=== PATIENT | female | born 1990 | race Caucasian/White ===

== ENCOUNTER 2019-01-04 23:46 | Emergency (ER) | payer MEDICAID ==
--- NOTE | 2019-01-05 02:11 | ER Document Report ---
ED Medical Screen (RME) - General Chief Complaint: Medical Complaint Stated Complaint: POSSIBLE MEDICATION REACTION Time Seen by Provider: 01/05/19 02:08 Primary Care Provider: LITTLE WATTERS MD [Primary Care Provider] - Follow up as needed Mode of Arrival: Ambulatory Information source: Patient Notes: 28-year-old female presented to ED for possible reaction to Plaquenil. She states she took the Plaquenil about 3 PM. She states she started feeling "funny, weird, burning feeling to the skin". She states about 5:00 he started getting dizzy and feeling like her heart was racing and she had a rash but it was not itchy it is felt/. She states this went away back after 10 minutes. She states she then went out to dinner about 930. She states she felt chest discomfort and throat tightness and flushed feeling again. She states that it went away again after about 10 minutes. She states this feeling has been coming and going multiple times. She states earlier today she did try some charcoal for gas but had no relief with that. Patient is alert oriented respirations regular and unlabored speaking in full sentences. Patient states she is positive for lupus. I have greeted and performed a rapid initial assessment of this patient. A comprehensive ED assessment and evaluation of the patient, analysis of test results and completion of medical decision making process will be conducted by an additional ED providers. Dictation of this chart was performed using voice recognition software; therefore, there may be some unintended grammatical errors. TRAVEL OUTSIDE OF THE [place] IN LAST 30 DAYS: No - Related Data Allergies/Adverse Reactions: methylprednisolone Allergy (Verified 01/04/19 23:51) prednisone Allergy (Verified 01/04/19 23:51) Past Medical History - Immunizations Hx Diphtheria, Pertussis, Tetanus Vaccination: Yes Doctor's Discharge - Discharge Referrals: LITTLE WATTERS MD [Primary Care Provider] - Follow up as needed
[2019-01-05 03:51] LABS: APPEARANCE,URINE CLEAR; BILIRUBIN,URINE NEGATIVE (NEGATIVE); COLOR,URINE YELLOW; GLUCOSE, URINE NEGATIVE (NEGATIVE); KETONES,URINE 20 mg/dL (NEGATIVE); LEUKOCYTE ESTERASE,URINE NEGATIVE (NEGATIVE); NITRITE,URINE NEGATIVE (NEGATIVE); PROTEIN,URINE NEGATIVE (NEGATIVE); URINE SPECIFIC GRAVITY 1.013; UROBILINOGEN,URINE NEGATIVE mg/dL (<2.0)
[2019-01-05 03:53] LABS: ABSOLUTE LYMPHOCYTES (AUTO) 1.7 10^3/uL (0.5-4.7); ABSOLUTE MONOCYTES (AUTO) 0.4 10^3/uL (0.1-1.4); ABSOLUTE NEUT (AUTO) 5.2 10^3/uL (1.7-8.2); BASOPHILS % (AUTO) 0.6 % (0-2); EOSINOPHILS % (AUTO) 0.3 % (0-6); HEMATOCRIT 39.9 % (36.0-47.0); HEMOGLOBIN 14.3 g/dL (12.0-15.5); LYMPHOCYTES % (AUTO) 22.8 % (13-45); MEAN CORPUSCULAR HEMOGLOBIN 31.6 pg (27.0-33.4); MEAN CORPUSCULAR HGB CONC 35.9 g/dL (32.0-36.0); MEAN CORPUSCULAR VOLUME 88 fl (80-97); MONOCYTES % (AUTO) 5.7 % (3-13); PLATELET COUNT 245 10^3/uL (150-450); RED BLOOD COUNT 4.53 10^6/uL (3.72-5.28); RED CELL DISTRIBUTION WIDTH 12.9 % (11.5-14.0); SEGMENTED NEUTROPHILS % (AUTO) 70.6 % (42-78); TOTAL CELLS COUNTED % (AUTO) 100 %; WHITE BLOOD COUNT 7.4 10^3/uL (4.0-10.5)
[2019-01-05 04:10] LABS: ALANINE AMINOTRANSFERASE 18 U/L (9-52); ALBUMIN 4.7 g/dL (3.5-5.0); ALKALINE PHOSPHATASE 46 U/L (38-126); ANION GAP 11 (5-19); ASPARTATE AMINO TRANSFERASE 19 U/L (14-36); BILIRUBIN,DIRECT 0.1 mg/dL (0.0-0.4); BILIRUBIN,TOTAL 0.4 mg/dL (0.2-1.3); BLOOD UREA NITROGEN 12 mg/dL (7-20); CARBON DIOXIDE 26 mmol/L (22-30); CHLORIDE 104 mmol/L (98-107); GLUCOSE 116 mg/dL (75-110); POTASSIUM 4.1 mmol/L (3.6-5.0); SODIUM 141.4 mmol/L (137-145); TOTAL PROTEIN 7.5 g/dL (6.3-8.2)
[2019-01-05] MEDS ORDERED: LORAZEPAM 0.5 MG TABLET PO ONE (04:58)
--- NOTE | 2019-01-05 05:01 | ER Document Report ---
ED General - General Chief Complaint: Medical Complaint Stated Complaint: POSSIBLE MEDICATION REACTION Time Seen by Provider: 01/05/19 02:08 Primary Care Provider: LITTLE WATTERS MD [ACTIVE STAFF] - Follow up as needed Mode of Arrival: Ambulatory Notes: Patient is a 28-year-old female that comes to the emergency department for chief complaint of possible allergic reaction to Plaquenil. She states she has been prescribed this for a while, she states she had a bad reaction to prednisone in the past, she states she finally decided to take one earlier today. She states that her that she felt like she was lightheaded, she states that she had flushing on her skin on her neck and arms that would show up and then resolved shortly after this, she states that she got a strange feeling over her skin that almost felt like burning in spots. She denies itching, she denies rash that stayed. She states that later she felt lightheaded again, felt like her heart was beating with palpitations, and felt flushed. She states that after this she came to the emergency department. She denies chest pain, shortness of breath, passing out, difficulty swallowing. She denies any current complaints other than feeling slightly shaky, she states she feels much better. 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 TRAVEL OUTSIDE OF THE [place] IN LAST 30 DAYS: No - Related Data Allergies/Adverse Reactions: methylprednisolone Allergy (Verified 01/04/19 23:51) prednisone Allergy (Verified 01/04/19 23:51) Past Medical History - General Information source: Patient - Social History Smoking Status: Never Smoker Drug Abuse: None Lives with: Family Family History: Reviewed & Not Pertinent Patient has suicidal ideation: No Patient has homicidal ideation: No Renal/ Medical History: Denies: Hx Peritoneal Dialysis Musculoskeletal Medical History: Reports Hx Systemic Lupus Erythematosus - Undifferentiated connective tissue disorder, possibly lupus Psychiatric Medical History: Reports: Hx Anxiety - Immunizations Hx Diphtheria, Pertussis, Tetanus Vaccination: Yes Review of Systems - Review of Systems Constitutional: See HPI EENT: No symptoms reported Cardiovascular: See HPI Respiratory: No symptoms reported Gastrointestinal: No symptoms reported Genitourinary: No symptoms reported Female Genitourinary: No symptoms reported Musculoskeletal: No symptoms reported Skin: See HPI Hematologic/Lymphatic: No symptoms reported Neurological/Psychological: No symptoms reported Physical Exam - Vital signs Vitals: Temp Pulse Resp BP Pulse Ox 98.6 F 98 16 132/73 H 100 01/04/19 23:53 01/04/19 23:53 01/04/19 23:53 01/04/19 23:53 01/04/19 23:53 - Notes Notes: GENERAL: Patient is shaking in her hands slightly, she is alert, interacts well, otherwise well-appearing. HEAD: Normocephalic, atraumatic. EYES: Pupils equal, round, and reactive to light. Extraocular movements intact. ENT: Oral mucosa moist, tongue midline. Oropharynx unremarkable. Airway patent. Nares patent, no nasal septal hematoma, TM's intact. NECK: Full range of motion. Supple. Trachea midline. LUNGS: Clear to auscultation bilaterally, no wheezes, rales, or rhonchi. No respiratory distress. HEART: Regular rate and rhythm. No murmur ABDOMEN: Soft, non-tender. Non-distended. Bowel sounds present in all 4 quadrants. GENITOURINARY: Deferred EXTREMITIES: Moves all 4 extremities spontaneously. No edema, normal radial and dorsalis pedis pulses bilaterally. No cyanosis. BACK: no cervical, thoracic, lumbar midline tenderness. No saddle anesthesia, normal distal neurovascular exam. Moves all extremities in full range of motion. NEUROLOGICAL: Alert and oriented x3. Normal speech. Cranial nerves II through XII grossly intact. PSYCH: Speaks persistently and slightly rapidly. SKIN: Warm, dry, normal turgor. No rashes or lesions noted. Course - Re-evaluation Re-evalutation: EKG unremarkable. Sinus rhythm, no T wave inversions or ST segment changes in consecutive leads, normal axis, normal KS interval. Patient currently asy mptomatic. CBC, chemistry unremarkable. Urinalysis unremarkable. test is negative. Patient has no signs of anaphylaxis on her exam. She does not specifically report hives, soft tissue swelling, airway compromise, difficulty breathing. She does report flushing and symptoms suggestive of hypoglycemia although this is not definite. She also reports "bad anxiety" and appears to have had a panic attack. She was provided with a dose of Ativan because she is still slightly shaky on my evaluation. I discussed with patient, decision was made to place her on cetirizine although I do feel that she did not have an allergic reaction, possibly simply medication side effects. Patient states that she will discuss Plaquenil with her provider before she takes it again. Discussed return precautions in detail. Patient states satisfaction agreement with plan. - Vital Signs Vital signs: Temp Pulse Resp BP Pulse Ox 98.4 F 97 19 113/57 L 100 01/05/19 05:22 01/05/19 05:22 01/05/19 05:22 01/05/19 05:22 01/05/19 05:22 - Laboratory Result Diagrams: 01/05/19 03:35 01/05/19 03:35 Laboratory results interpreted by me: 01/05/19 01/05/19 00:03 03:35 Glucose 116 H Urine Ketones 20 H Discharge - Discharge Clinical Impression: Flushing, Lightheadedness, Rash Condition: Stable Disposition: HOME, SELF-CARE Additional Instructions: Your symptoms are suggestive of hypoglycemia and also flushing, this could be side effects/intolerance to the medication that you tried earlier today. I do not see evidence of an allergic reaction on your evaluation at this time. 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 Return for any concerning symptoms including difficulty swallowing or breathing, swelling of the face, passing out, or any other concerning or worsening symptoms. Prescriptions: Cetirizine HCl [Allergy Relief] 10 mg PO DAILY #30 capsule Forms: Return to Work, Treatment of Relative/Child Referrals: LITTLE WATTERS MD [ACTIVE STAFF] - Follow up as needed
[2019-01-05 05:24] VITALS: BP 113/57
== END 2019-01-05 05:25 | disposition home or self-care (01) ==
LOC: ER 23:46
DX: R42 Dizziness and giddiness (principal); R23.2 Flushing; R21 Rash and other nonspecific skin eruption
CPT/HCPCS: 36415; 80053; 81001; 82553; 84703; 85025; 99283

== ENCOUNTER 2019-01-07 19:34 | Emergency (ER) | payer MEDICAID ==
[2019-01-07 23:47] LABS: APPEARANCE,URINE SLIGHTLY-CLOUDY; BILIRUBIN,URINE NEGATIVE (NEGATIVE); COLOR,URINE YELLOW; GLUCOSE, URINE NEGATIVE (NEGATIVE); KETONES,URINE 20 mg/dL (NEGATIVE); LEUKOCYTE ESTERASE,URINE NEGATIVE (NEGATIVE); NITRITE,URINE NEGATIVE (NEGATIVE); PROTEIN,URINE NEGATIVE (NEGATIVE); URINE SPECIFIC GRAVITY 1.019; UROBILINOGEN,URINE NEGATIVE mg/dL (<2.0)
[2019-01-07 23:57] LABS: ABSOLUTE LYMPHOCYTES (AUTO) 2.1 10^3/uL (0.5-4.7); ABSOLUTE MONOCYTES (AUTO) 0.6 10^3/uL (0.1-1.4); ABSOLUTE NEUT (AUTO) 5.4 10^3/uL (1.7-8.2); BASOPHILS % (AUTO) 0.6 % (0-2); EOSINOPHILS % (AUTO) 0.5 % (0-6); HEMOGLOBIN 14.3 g/dL (12.0-15.5); LYMPHOCYTES % (AUTO) 25.3 % (13-45); MEAN CORPUSCULAR HEMOGLOBIN 31.6 pg (27.0-33.4); MEAN CORPUSCULAR HGB CONC 35.6 g/dL (32.0-36.0); MEAN CORPUSCULAR VOLUME 89 fl (80-97); MONOCYTES % (AUTO) 6.9 % (3-13); PLATELET COUNT 239 10^3/uL (150-450); RED BLOOD COUNT 4.52 10^6/uL (3.72-5.28); RED CELL DISTRIBUTION WIDTH 12.8 % (11.5-14.0); SEGMENTED NEUTROPHILS % (AUTO) 66.7 % (42-78); TOTAL CELLS COUNTED % (AUTO) 100 %; WHITE BLOOD COUNT 8.1 10^3/uL (4.0-10.5)
[2019-01-08 00:09] LABS: URINE AMPHETAMINES SCREEN NEGATIVE; URINE BARBITURATES SCREEN NEGATIVE; URINE BENZODIAZEPINES SCREEN NEGATIVE; URINE COCAINE SCREEN NEGATIVE; URINE MARIJUANA (THC) SCREEN NEGATIVE; URINE METHADONE SCREEN NEGATIVE; URINE PHENCYCLIDINE SCREEN NEGATIVE
[2019-01-08 00:24] LABS: ALANINE AMINOTRANSFERASE 18 U/L (9-52); ALBUMIN 4.8 g/dL (3.5-5.0); ALKALINE PHOSPHATASE 49 U/L (38-126); ANION GAP 13 (5-19); ASPARTATE AMINO TRANSFERASE 19 U/L (14-36); BILIRUBIN,DIRECT 0.1 mg/dL (0.0-0.4); BILIRUBIN,TOTAL 0.6 mg/dL (0.2-1.3); BLOOD UREA NITROGEN 10 mg/dL (7-20); CALCIUM 9.9 mg/dL (8.4-10.2); CARBON DIOXIDE 23 mmol/L (22-30); CHLORIDE 105 mmol/L (98-107); GLUCOSE 93 mg/dL (75-110); POTASSIUM 3.7 mmol/L (3.6-5.0); SODIUM 141.1 mmol/L (137-145); TOTAL PROTEIN 7.8 g/dL (6.3-8.2)
[2019-01-08 00:33] LABS: ERYTHROCYTE SEDIMENTATION RATE 6 mm/hr (0-20)
--- NOTE | 2019-01-08 00:36 | ER Document Report ---
Entered by MARBELLA ORTIZ SCRIBE 01/07/19 [id number] Acting as scribe for:YIN HARRIS MD ED General - General Chief Complaint: Palpitations Stated Complaint: POSSIBLE ALLERGIC REACTION Time Seen by Provider: 01/07/19 23:04 Primary Care Provider: JOON BANKS FNP-C [Primary Care Provider] - Follow up as needed Mode of Arrival: Ambulatory Information source: Patient Notes: Patient is a 28 year old female with anxiety presents to the emergency department complaining of multiple symptoms including heart palpitations, nausea and redness of the skin onset 4 days ago. Patient states she would have intermittent episodes of heart palpitations accompanied by elevated blood pressure, a "warm flushing sensation across her entire body" followed by nausea and feelings of panic further stating "I feel like i am going to ". She states the symptoms were onset after taking half a tablet of 200mg Plaquenil. Patient states these symptoms are onset randomly when sitting or going into the standing position. She states the highest her heart rate has been since the onset of her symptoms were 124 bpm and the highest blood pressure has been 134/70. Patient states she has had elevated MOHAMUD and she is currently seeing a provider concerning this. She states her PCP has not checked her thyroid function so she did an at home T3 and T4 test which proved to be normal. Patient was prescribed the Plaquenil on October 24, but she reports not taking the medication until recently due to living in a moldy house further stating she waited until she moved to take the medication. TRAVEL OUTSIDE OF THE [place] 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 Lives with: Spouse/Significant other Family History: Reviewed & Not Pertinent Patient has suicidal ideation: No Patient has homicidal ideation: No Musculoskeletal Medical History: Reports Hx Systemic Lupus Erythematosus - Undifferentiated connective tissue disorder, possibly lupus Psychiatric Medical History: Reports: Hx Anxiety Past Surgical History: Reports: Hx Oral Surgery - wisdom teeth - Immunizations Hx Diphtheria, Pertussis, Tetanus Vaccination: Yes Review of Systems - Review of Systems Constitutional: See HPI EENT: No symptoms reported Cardiovascular: See HPI, Palpitations Respiratory: No symptoms reported Gastrointestinal: See HPI, Nausea Genitourinary: No symptoms reported Female Genitourinary: No symptoms reported Musculoskeletal: No symptoms reported Skin: See HPI, Change in color Hematologic/Lymphatic: No symptoms reported Neurological/Psychological: No symptoms reported -: Yes All other systems reviewed and negative Physical Exam - Vital signs Vitals: Temp Pulse Resp BP Pulse Ox 99.0 F 90 16 117/74 100 01/07/19 19:47 01/07/19 19:47 01/07/19 19:47 01/07/19 19:47 01/07/19 19:47 - Notes Notes: GENERAL: Alert, interacts well. No acute distress. HEAD: Normocephalic, atraumatic. EYES: Pupils equal, round, and reactive to light. Extraocular movements intact. ENT: Oral mucosa moist, tongue midline. NECK: Full range of motion. Supple. Trachea midline. LUNGS: Clear to auscultation bilaterally, no wheezes, rales, or rhonchi. No respiratory distress. HEART: Regular rate and rhythm. No murmurs, gallops, or rubs. ABDOMEN: Soft, non-tender. Non-distended. Bowel sounds present in all 4 chandler drants. No guarding, rigidity, or rebound. EXTREMITIES: Moves all 4 extremities spontaneously. No edema, radial and dorsalis pedis pulses 2/4 bilaterally. No cyanosis. NEUROLOGICAL: Alert and oriented x3. Normal speech. PSYCH: Normal affect, normal mood. SKIN: Warm, dry, normal turgor. No rashes or lesions noted. Course - Re-evaluation Re-evalutation: 01/08/19 00:51 The patient's ESR is only 6 mm/hr. This does not suggest that she has an active case of lupus or other autoimmune disorder. - Vital Signs Vital signs: Temp Pulse Resp BP Pulse Ox 99.0 F 90 16 117/74 100 01/07/19 19:47 01/07/19 19:47 01/07/19 19:47 01/07/19 19:47 01/07/19 19:47 - Laboratory Result Diagrams: 01/07/19 23:47 01/07/19 23:47 Laboratory results interpreted by me: 01/07/19 23:32 Urine Ketones 20 H Urine Ascorbic Acid 20 H Discharge - Discharge Clinical Impression: Anxiety about health, Panic attacks, Palpitations Condition: Stable Disposition: HOME, SELF-CARE Additional Instructions: Panic Attack The cause of panic attacks is unknown. Symptoms can include chest pain, shortness of breath, palpitations, sweats, and a sense of smothering or impending doom. In time, the panic attacks can lead to generalized anxiety and phobias. Because the symptoms can mimic heart attack, pulmonary embolism, and other serious diseases, the physician has evaluated you for these conditions. There is no evidence of a serious problem. An acute panic attack usually goes away by itself without treatment. A severe attack can be treated with medicine to calm you. Long-term, antidepressant medicines may help prevent attacks. Counselling can also be very beneficial in dealing with panic attacks. Panic attacks are less likely if you are getting regular exercise, proper diet, and plenty of sleep. It's normal for panic attacks to cause many frightening symptoms. However, you should call or return if your symptoms change significantly or if you are worsening. Your lab work was unremarkable tonight. The TSH will be run sometime tomorrow. Your erythrocyte sedimentation rate(ESR) was quite low at only 6 mm/hr, it is usually quite elevated when you are having a flareup of an autoimmune disorder such as lupus, rheumatoid arthritis, or thyroiditis. Try taking Benadryl to help with anxiety and panic attacks, this may also help you sleep. Follow-up with your primary care provider on Thursday to discuss these anxiety attacks. RETURN TO THE EMERGENCY ROOM IF ANY NEW OR WORSENING SYMPTOMS. Referrals: JOON BANKS, BRETC [Primary Care Provider] - 01/10/19 Scribe Attestation: 01/07/19 23:33 I personally performed the services described in the documentation, reviewed and edited the documentation which was dictated to the scribe in my presence, and it accurately records my words and actions. I personally performed the services described in the documentation, reviewed and edited the documentation which was dictated to the scribe in my presence, and it accurately records my words and actions.
[2019-01-08 01:18] VITALS: BP 120/70
--- NOTE | 2019-01-08 11:57 | EKG REPORT ---
SEVERITY:- BORDERLINE ECG - SINUS RHYTHM NONSPECIFIC ST-T CHANGES : Confirmed by: Seymour Machado MD 08-Jan-2019 11:56:53
== END 2019-01-08 01:27 | disposition home or self-care (01) ==
LOC: ER 19:34
DX: F41.9 Anxiety disorder, unspecified (principal); F41.0 Panic disorder [episodic paroxysmal anxiety]; R00.2 Palpitations; R11.0 Nausea; L53.9 Erythematous condition, unspecified; Z88.8 Allergy status to other drugs, medicaments and biological substances
CPT/HCPCS: 36415; 80053; 80307; 81001; 82962; 84443; 85025; 85652; 93005; 93010; 99285

== ENCOUNTER → 2019-05-23 | Outpatient (CLI) | payer MEDICAID | LOC: OD 15:49 | PROVIDERS: ATTEND Nurse Practitioner Family | DX: F41.9 Anxiety disorder, unspecified (principal); R56.9 Unspecified convulsions | CPT/HCPCS: 36415; 82306; 82607 ==

== ENCOUNTER 2020-03-09 05:48 | Emergency (ER) | payer MEDICAID ==
[2020-03-09 07:04] LABS: APPEARANCE,URINE CLEAR; BILIRUBIN,URINE NEGATIVE (NEGATIVE); COLOR,URINE STRAW; GLUCOSE, URINE NEGATIVE (NEGATIVE); KETONES,URINE NEGATIVE (NEGATIVE); LEUKOCYTE ESTERASE,URINE NEGATIVE (NEGATIVE); NITRITE,URINE NEGATIVE (NEGATIVE); PROTEIN,URINE NEGATIVE (NEGATIVE); URINE SPECIFIC GRAVITY 1.009; UROBILINOGEN,URINE NEGATIVE mg/dL (<2.0)
[2020-03-09 07:05] LABS: ABSOLUTE EOSINOPHILS # (AUTO) 0.1 10^3/uL (0.0-0.6); ABSOLUTE LYMPHOCYTES (AUTO) 2.1 10^3/uL (0.5-4.7); ABSOLUTE MONOCYTES (AUTO) 0.5 10^3/uL (0.1-1.4); ABSOLUTE NEUT (AUTO) 3.6 10^3/uL (1.7-8.2); BASOPHILS % (AUTO) 0.6 % (0-2); EOSINOPHILS % (AUTO) 1.6 % (0-6); HEMATOCRIT 38.7 % (36.0-47.0); HEMOGLOBIN 13.8 g/dL (12.0-15.5); LYMPHOCYTES % (AUTO) 32.2 % (13-45); MEAN CORPUSCULAR HEMOGLOBIN 31.8 pg (27.0-33.4); MEAN CORPUSCULAR HGB CONC 35.8 g/dL (32.0-36.0); MEAN CORPUSCULAR VOLUME 89 fl (80-97); MONOCYTES % (AUTO) 8.5 % (3-13); PLATELET COUNT 224 10^3/uL (150-450); RED BLOOD COUNT 4.35 10^6/uL (3.72-5.28); RED CELL DISTRIBUTION WIDTH 12.3 % (11.5-14.0); SEGMENTED NEUTROPHILS % (AUTO) 57.1 % (42-78); TOTAL CELLS COUNTED % (AUTO) 100 %; WHITE BLOOD COUNT 6.4 10^3/uL (4.0-10.5)
[2020-03-09 07:17] LABS: URINE AMPHETAMINES SCREEN NEGATIVE; URINE BARBITURATES SCREEN NEGATIVE; URINE BENZODIAZEPINES SCREEN NEGATIVE; URINE COCAINE SCREEN NEGATIVE; URINE MARIJUANA (THC) SCREEN NEGATIVE; URINE METHADONE SCREEN NEGATIVE; URINE PHENCYCLIDINE SCREEN NEGATIVE
[2020-03-09 07:26] LABS: ALBUMIN 4.4 g/dL (3.5-5.0); ALKALINE PHOSPHATASE 70 U/L (38-126); ANION GAP 6 (5-19); ASPARTATE AMINO TRANSFERASE 21 U/L (14-36); BILIRUBIN,TOTAL 0.2 mg/dL (0.2-1.3); BLOOD UREA NITROGEN 17 mg/dL (7-20); CALCIUM 9.4 mg/dL (8.4-10.2); CARBON DIOXIDE 28 mmol/L (22-30); CHLORIDE 105 mmol/L (98-107); GLUCOSE 127 mg/dL (75-110); POTASSIUM 3.7 mmol/L (3.6-5.0); TOTAL PROTEIN 7.4 g/dL (6.3-8.2)
[2020-03-09 07:30] LABS: ALCOHOL < 10 mg/dL (NONE DETECTED)
--- NOTE | 2020-03-09 07:46 | ER Document Report ---
ED General - General Chief Complaint: Probable Seizure Stated Complaint: POSSIBLE SEIZURE Time Seen by Provider: 03/09/20 06:47 Primary Care Provider: RAIN LEWIS NP-C [NO LOCAL MD] - Follow up as needed TRAVEL OUTSIDE OF THE [place] IN LAST 30 DAYS: No - HPI Notes: Chief complaint: Possible seizure History of present illness: 29-year-old female presents for evaluation of possible seizure. Patient has a relatively complex history although she is currently on no medication. Patient began having what sounds like panic attacks about 2 years ago. She subsequently had some episodes of what she describes as "convulsive shaking" with these occasionally. She was ultimately seen by a local neurologist and had extensive studies including a brain MRI, standard EEG and sleep deprived EEG all of which were reported as normal. Neurologist advised her that she was probably having pseudoseizures and these were felt to likely be related to panic attacks. Patient was referred for cognitive therapy and never really followed through with this process because she lost her health insurance. She was also subsequently seen by a local inspector subassemblies, Dr. Singletary, who found evidence of autonomic instability with a positive tilt table test. He suggested that the patient regularly takes salt tablets. She did this for a while and did very well but recently has been somewhat noncompliant with this therapy. She is also subsequently been seen by a trim carpenter in [facility] and was told that she had "some features of possible early lupus" although she did not meet full diagnostic criteria. She was briefly treated with Plaquenil but this was discontinued because of adverse side effects. Patient says that overnight she felt anxious and had 1 of her episodes of "convulsive shaking". There was no loss of consciousness. She says she could not speak for about 15 minutes and this is been characteristic of the other episodes that she has had. She has a home blood pressure monitor and says that her blood pressure at that time was 80/40. She was brought to the hospital by her significant other and says she feels slightly tremulous now but is otherwise well. She denies any headache or focal deficit. She denies any fever, chills or vomiting. Patient denies use of tobacco or alcohol. States that she smoked marijuana in the past but none recently. No major surgery. No current medications. Multiple drug allergies including Plaquenil, methylprednisolone and prednisone. 8 para 2 AB 6. Last menses 2 weeks ago described as normal. - Related Data Allergies/Adverse Reactions: hydroxychloroquine [From Plaquenil] Allergy (Verified 03/09/20 06:26) methylprednisolone Allergy (Verified 01/04/19 23:51) prednisone Allergy (Verified 01/04/19 23:51) Home Medications: salt tab, ibuprofen prn, cbd oil, folate 2xweek, vitamin d q week,. 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 Denies: Hx Seizures Endocrine Medical History: Denies: Hx Diabetes Mellitus Type 1, Hx Diabetes Mellitus Type 2 Renal/ Medical History: Denies: Hx Peritoneal Dialysis Musculoskeletal Medical History: Reports Hx Systemic Lupus Erythematosus - Undifferentiated connective tissue disorder, possibly lupus Psychiatric Medical History: Reports: Hx Anxiety, Other - Panic attacks Past Surgical History: Reports: Hx Oral Surgery - wisdom teeth - Immunizations Hx Diphtheria, Pertussis, Tetanus Vaccination: Yes Review of Systems - Review of Systems Notes: Constitutional: Negative for fever. HENT: Negative for sore throat. Eyes: Negative for visual changes. Cardiovascular: Negative for chest pain. Respiratory: Negative for shortness of breath. Gastrointestinal: Negative for abdominal pain, vomiting or diarrhea. Genitourinary: Negative for dysuria. Musculoskeletal: Negative for back pain. Skin: Negative for rash. Neurological: As per HPI. 10 point ROS negative except as marked above and in HPI. Physical Exam - Vital signs Vitals: Temp Pulse Resp BP Pulse Ox 99.3 F 125 H 16 120/76 99 03/09/20 05:53 03/09/20 05:53 03/09/20 05:53 03/09/20 05:53 03/09/20 05:53 Interpretation: Tachycardic - Notes Notes: GENERAL: Slender female approximately stated age appearing mildly anxious but otherwise in no acute distress. SKIN: Good turgor no rashes. HEAD: Normocephalic atraumatic. EYES: PERRLA. EOMI. Conjunctivae and sclerae clear. EARS: CANALS AND TMS CLEAR. NOSE: CLEAR. MOUTH: Moist mucosa. Good dentition. No stridor or edema. No drooling. NECK: Supple. No masses or thyromegaly. No adenopathy. Carotids 2+ without bruits. No JVD. BACK: Symmetrical without tenderness. CHEST: Respirations unlabored. Breath sounds clear and symmetrical. HEART: Tachycardic regular rhythm. No murmur gallop or rub. ABDOMEN: Soft nontender without masses, organomegaly or rebound. Bowel sounds normally active. No bruits. GENITALIA: Deferred. EXTREMITIES: No edema. No calf tenderness. Cap refill less than 1.5 seconds. Dorsalis pedis and posterior tibial pulses 3+ and symmetrical. NEUROLOGICAL: Mild generalized tremor. GCS 15. Alert and oriented x3. Normal gait. Fluent speech. Cranial nerves II through XII intact. Sensorimotor and cerebellar normal. Normal tone. PSYCHIATRIC: Mildly anxious affect. Course - Vital Signs Vital signs: Temp Pulse Resp BP Pulse Ox 99.3 F 106 H 15 117/84 98 03/09/20 05:53 03/09/20 10:31 03/09/20 11:01 03/09/20 11:00 03/09/20 11:01 - Laboratory Result Diagrams: 03/09/20 06:46 03/09/20 06:46 Laboratory results interpreted by me: 03/09/20 06:46 Glucose 127 H - EKG Interpretation by Me Additional EKG results interpreted by me: 03/09/20 07:50 Twelve-lead EKG from 0742 hrs. reviewed contemporaneously by me showing sinus tachycardia with a rate of 104. Normal QRS axis of +60 degrees. Normal intervals. There is significant somatic tremor artifact. No acute ST/T wave changes. Aside from her heart rate there is no significant interval change in comparison to prior study of 01/07/2019. Indication for current study: Possible seizure. Discharge - Discharge Clinical Impression: POTS (postural orthostatic tachycardia syndrome) Condition: Stable Disposition: HOME, SELF-CARE Additional Instructions: Increase oral fluids. Take prescribed medication. Schedule follow-up visit with Dr. Singletary (cardiology) as soon as possible. Return to the emergency department as needed for new or worsening symptoms. Prescriptions: Fludrocortisone Acetate [Florinef 0.1 mg Tablet] 0.1 mg PO DAILY #30 tablet Referrals: RAIN LEWIS COAT JOINERVikramC [NO LOCAL MD] - Follow up as needed SHA SINGLETARY MD [ACTIVE STAFF] - Follow up as needed
[2020-03-09] MEDS: NORMAL SALINE 1000 ML 1,000 ML IV PRN ×2 (08:34→09:26)
--- NOTE | 2020-03-09 09:48 | EKG REPORT ---
SEVERITY:- DEFECTIVE ECG - SINUS TACHYCARDIA : Confirmed by: Seymour Machado MD 09-Mar-2020 09:47:06
[2020-03-09] MEDS ORDERED: FLUDROCORTISONE ACETATE 0.1 MG TABLET PO ONE (10:41)
[2020-03-09] MEDS ORDERED: NORMAL SALINE 500 ML IV ONE (10:42)
[2020-03-09 13:02] VITALS: BP 116/63
== END 2020-03-09 13:00 | disposition home or self-care (01) ==
LOC: ER 05:48
DX: I49.8 Other specified cardiac arrhythmias (principal); R25.1 Tremor, unspecified; Z91.14 Patient's other noncompliance with medication regimen; Z79.899 Other long term (current) drug therapy; Z88.8 Allergy status to other drugs, medicaments and biological substances
CPT/HCPCS: 93005; 99284; 96360; 96361; 36415; 80307 ×2; 83735; 84703; 85025; 82270; 80053; 81001; 93010; J3490; J7030; J7040